=== PATIENT | female | born 1945 | race Caucasian/White ===

== ENCOUNTER 2016-08-03 19:11 | Inpatient (IN) | payer MEDICARE ==
[~2016-08-03] VITALS: Ht 160 cm; Wt 40.6 kg
[~2016-08-03 19:11] MED LIST: ALBU8I INH; AMLO5TAB22 PO; LEVO.125 PO; SUCR1 PO; TEMA15 PO
[2016-08-03 19:22] VITALS: BP 123/71; PULSE 120; RESP 18; TEMP 98.9; O2SAT 90
[2016-08-03 20:26] VITALS: RESP 20; O2SAT 94
[2016-08-03] MEDS ORDERED: SODIUM CHLORIDE 0.9% FLUSH 10 ML FLUSH IVF PRN (20:30)
[2016-08-03] MEDS ORDERED: RESP: ALBUTEROL 2.5 MG/IPRATROPIUM 0.5 MG NEB (SCH) INH ONE (20:30)
[2016-08-03 20:47] VITALS: O2SAT 93
[2016-08-03 21:02] LABS: BASOPHIL % 0.3 % (0.0-2.0); BLOOD, URINE NEG (NEG); GLUCOSE,URINE NEG (NEG); KETONE, URINE 15 mg/dL (NEG); LYMPH % 4.4 % (9.0-44.0); LYMPHOCYTE # 0.4 TH/MM3 (1.0-4.8); MEAN CELL VOLUME 94.6 FL (80.0-100.0); MEAN CORPUSCULAR HEMOGLOBIN 31.8 PG (27.0-34.0); MEAN CORPUSCULAR HGB CONC 33.5 % (32.0-36.0); MONO % 8.9 % (0.0-8.0); NEUT % 86.4 % (16.0-70.0); NITRITE,URINE NEG (NEG); PLATELET COUNT 138 TH/MM3 (150-450); RED BLOOD COUNT 4.76 MIL/MM3 (4.00-5.30); RED CELL DISTRIBUTION WIDTH 11.2 % (11.6-17.2); WHITE BLOOD COUNT 8.1 TH/MM3 (4.0-11.0)
--- NOTE | 2016-08-03 21:02 | RADHPO ---
EXAM DATE/TIME: 08/03/2016 20:32 [facility] COMPARISON: CHEST PA & LAT, March 08, 2013, 18:39. INDICATIONS : Cough, congestion, pain on left side for 24 hours MEDICAL HISTORY : Chronic obstructive pulmonary disease. SURGICAL HISTORY : None. ENCOUNTER: Initial ACUITY: 1 day PAIN SCORE: 5/10 LOCATION: Left chest FINDINGS: There is hyperinflation of both lungs consistent with the history of COPD. The heart size is normal. Osseous structures are intact. EKG leads are identified. Overlying the right sixth posterior rib is a vague 2.7 cm nodular opacity. A right lung mass is difficult to exclude. CT chest recommended for fu rther evaluation. CONCLUSION: COPD. Right lung mass should be excluded and CT chest. Solis Dunaway MD on August 03, 2016 at 20:59 Board Certified Radiologist. This report was verified electronically.
[2016-08-03 21:07] LABS: HEMO FLAGS DIFF FINAL
[2016-08-03 21:09] LABS: COMMENT (UR) CULT NOT INDICATED; CULTURE IF INDICATED CULT NOT INDICATED; RBC, URINE 0-2 /hpf (0-3); SQUAMOUS EPITHELIAL CELL URINE 0-5 /hpf (0-5); URINE COLOR YELLOW (YELLW/STRAW); WBC, URINE 0-2 /hpf (0-5)
[2016-08-03 21:11] LABS: CHLORIDE 104 MEQ/L (98-107); SODIUM (NA) 140 MEQ/L (136-145)
[2016-08-03 21:12] VITALS: BP 135/68; PULSE 85; RESP 18; O2SAT 93
[2016-08-03 21:15] LABS: ANION GAP 11 MEQ/L (5-15); BICARBONATE 24.8 MEQ/L (21.0-32.0); BLOOD UREA NITROGEN 11 MG/DL (7-18)
[2016-08-03 21:18] LABS: ALT (GPT) 15 U/L (10-53); AST (GOT) 17 U/L (15-37); GLOMERULAR FILTRATION RATE 67 ML/MIN (>89)
[2016-08-03 21:19] LABS: TOTAL BILIRUBIN ADULT 0.6 MG/DL (0.2-1.0)
[2016-08-03 21:21] LABS: ALKALINE PHOSPHATASE 99 U/L (45-117)
[2016-08-03 21:30] LABS: APTT (PATIENT) 34.1 SEC (24.3-30.1); PROTHROMBIN TIME - PATIENT 10.5 SEC (9.8-11.6)
[2016-08-03] MEDS ORDERED: POTASSIUM CHLORIDE 10 MEQ CONTROLLED RELEASE TAB PO ONE (21:30)
--- NOTE | 2016-08-03 21:36 | RADHPO ---
EXAM DATE/TIME: 08/03/2016 21:10 [facility] COMPARISON: CHEST PA & LAT, August 03, 2016, 20:32. INDICATIONS : Cough, abnormal chest radiograph. RADIATION DOSE: 6.20 CTDIvol (mGy) MEDICAL HISTORY : Chronic obstructive pulmonary disease. Hypertension. SURGICAL HISTORY : None. ENCOUNTER: Initial ACUITY: 1 day PAIN SCALE: 0/10 LOCATION: chest TECHNIQUE: Volumetric scanning of the chest was performed. Using automated exposure control and adjustment of t he mA and/or kV according to patient size, radiation dose was kept as low as reasonably achievable to obtain optimal diagnostic quality images. FINDINGS: Right upper lobe a focal slight is seen with a focal area of soft tissue along ial aspect seen best o n coronal image 41 measuring 1.9 cm in transverse dimension by 17 cm in AP dimension. There is patchy reticular nodular and confluent infiltrate distal to this point in the right upper lobe and this acc ounts for the nodular opacity on the x-ray. There are a few cystic air spaces seen in the right upper lobe including a thin-walled focus measuring 1.1 x 1.1 cm on image 19. Scattered nodular infiltrates are also seen in the right lower lobe with a more confluent nodular focus measuring 1.3 x 0.9 cm on image history posteriorly. There is a pleural-based triangle or focus of soft tissue in the left lowe r lobe measure 1.5 x 1 cm in AP and transverse dimension. Patchy nodular foci are seen also in the le ft lower lobe. Paraseptal emphysematous changes are noted. Atherosclerotic calcifications of the aort a are noted. No definite adenopathy. Osseous structures are intact. CONCLUSION: 1. Emphysema. 2. Scattered nodular infiltrates bilaterally most likely infectious in nature. Exclude atypical infec tious processes such as fungal or tuberculosis. 3. Neoplasm is not entirely excluded though felt less likely. Followup is recommended after appropria te medical therapy. Solis Dunaway MD on August 03, 2016 at 21:30 Board Certified Radiologist. This report was verified electronically.
[2016-08-03] MEDS ORDERED: AZITHROMYCIN INJ 500 MG in SODIUM CHLOR 0.9% 250 ML INJ 250 ML IV ONE (21:45)
[2016-08-03] MEDS ORDERED: cefTRIAXone INJ 1,000 MG in SODIUM CHLORIDE 0.9% INJ 100 ML IV ONE (21:45)
--- NOTE | 2016-08-03 21:49 | PD ---
HPI Chief Complaint: Cold / Flu Symptoms Time Seen by Provider: 20:10 Travel History International Travel<30 days: No Contact w/Intl Traveler<30days: No Traveled to known affect area: No History of Present Illness HPI Patient is a 71-year-old female who comes in complaining of chills, coughing, flulike symptoms. She says Monday night she started to have chills and she had some pain on her left side under her breast. She says she then started coughing yesterday and decided she should come in. In triage she was saturating 90% on room air and tachycardic. She says she does not feel short of breath. She has not taken her temperature at home, so does not know if she had a fever. She did take some Tylenol this afternoon, about 3 hours prior to arrival. She denies any recent travel. She denies any sick contacts. She says she felt this way in the past when she had pneumonia. PFSH Past Medical History Arthritis: Yes Asthma: No Autoimmune Disease: No Anxiety: No Depression: No Heart Rhythm Problems: No Cancer: No Cardiovascular Problems: Yes Cerebral Palsy: No High Cholesterol: No Chest Pain: No Congestive Heart Failure: No COPD: Yes Cerebrovascular Accident: No Diabetes: No Diminished Hearing: No Endocrine: Yes Gastrointestinal Disorders: Yes GERD: Yes Genitourinary: Yes (URGENCY/BLADDER SLING) Headaches: Yes Hiatal Hernia: No Hypertension: Yes Immune Disorder: No Implanted Vascular Access Dvce: Yes Kidney Stones: No Musculoskeletal: Yes Neurologic: No Psychiatric: No Reproductive: No Respiratory: Yes (COPD) Immunizations Current: Yes Migraines: No Renal Failure: No Seizures: No Sleep Apnea: No Thyroid Disease: Yes (HYPO) Ulcer: No Tetanus Vaccination: Unknown Influenza Vaccination: Yes ?: Not Menopausal: Yes Past Surgical History Abdominal Surgery: Yes (APPENDECTOMY - INCIDENTAL WITH CS, HERNIA REPAIR) AICD: No Appendectomy: Yes Arteriovenous Shunt: No Cardiac Surgery: No Section: Yes (X3) Endocrine Surgery: No Eye Surgery: No Genitourinary Surgery: No Gynecologic Surgery: Yes (CESEREAN SECTION X 3) Insulin Pump: No Joint Replacement: Yes (LEFT KNEE, RIGHT HIP) Neurologic Surgery: No Oral Surgery: Yes (TONSILLECTOMY) Pacemaker: No Thoracic Surgery: No Tonsillectomy: Yes Other Surgery: Yes (CARPEL TUNNEL SURG. TO RIGHT HAND., endoscopy x 2 with vessel cautery) Social History Alcohol Use: Yes (RARE) Tobacco Use: Yes (1/2 ppd) Substance Use: No Allergies-Medications (Allergen,Severity, Reaction): Coded Allergies: Sulfa (Verified Allergy, Severe, RASH, 08/03/16) Neosporin (Verified Allergy, Mild, Rash, 08/03/16) Uncoded Allergies: PLASTIC (Allergy, Mild, 12/04/15) Reported Meds & Prescriptions Reported Meds & Active Scripts Active Review of Systems Except as stated in HPI: all other systems reviewed are Neg General / Constitutional: Positive: Chills, No: Fever HENT: No: Headaches, Lightheadedness Cardiovascular: No: Chest Pain or Discomfort Respiratory: Positive: Cough Gastrointestinal: No: Nausea, Vomiting Genitourinary: No: Dysuria Musculoskeletal: No: Myalgias, Arthralgias Skin: No Rash, No Itching Neurologic: No: Weakness, Dizziness Physical Exam Narrative GENERAL: Awake and alert, in no acute distress. SKIN: Focused skin assessment warm/dry. HEAD: Atraumatic. Normocephalic. EYES: Pupils equal and round. No scleral icterus. ENT: Mucous membranes pink and moist. NECK: Trachea midline. No JVD. CARDIOVASCULAR: Regular rate and rhythm. No murmur appreciated. RESPIRATORY: No accessory muscle use. Left-sided basilar crackles. Breath sounds equal bilaterally. GASTROINTESTINAL: Abdomen soft, non-tender, nondistended. MUSCULOSKELETAL: No obvious deformities. No clubbing. No cyanosis. No edema. NEUROLOGICAL: Awake and alert. No obvious cranial nerve deficits. Motor grossly within normal limits. Normal speech. PSYCHIATRIC: Appropriate mood and affect; insight and judgment normal. Data Data Last Documented VS Vital Signs Date Time Temp Pulse Resp B/P Pulse Ox O2 Delivery O2 Flow Rate FiO2 08/03/16 21:12 85 18 135/68 93 Nasal Cannula 2 08/03/16 19:22 98.9 Orders Complete Blood Count With Diff (08/03/16 20:18) Comprehensive Metabolic Panel (08/03/16 20:18) Act Partial Throm Time (Ptt) (08/03/16 20:18) Prothrombin Time / Inr (Pt) (08/03/16 20:18) Troponin I (08/03/16 20:18) Urinalysis - C+S If Indicated (08/03/16 20:18) Ua Includes Microscopic (08/03/16 20:18) Iv Access Insert/Monitor (08/03/16 20:18) Electrocardiogram (08/03/16 20:18) Ecg Monitoring (08/03/16 20:18) Oximetry (08/03/16 20:18) Oxygen Administration (08/03/16 20:18) Chest, Pa & Lat (08/03/16 20:18) Sodium Chloride 0.9% Flush (Ns Flush) (08/03/16 20:30) Albuterol-Ipratropium Neb (Duoneb Neb) (08/03/16 20:30) Lactic Acid (08/03/16 20:18) Ct Thorax/ Chest Wo Iv Contras (08/03/16 ) Potassium Chloride (Kcl) (08/03/16 21:30) Ceftriaxone Inj (Rocephin Inj) (08/03/16 21:45) Azithromycin Inj (Zithromax Inj) (08/03/16 21:45) Isolation 08,20 (08/03/16 21:42) [employer] Culture And Stain (08/03/16 21:42) Blood Culture (08/03/16 21:42) Labs Laboratory Tests Test 08/03/16 20:55 White Blood Count 8.1 TH/MM3 Red Blood Count 4.76 MIL/MM3 Hemoglobin 15.1 GM/DL Hematocrit 45.0 % Mean Corpuscular Volume 94.6 FL Mean Corpuscular Hemoglobin 31.8 PG Mean Corpuscular Hemoglobin 33.5 % Concent Red Cell Distribution Width 11.2 % Platelet Count 138 TH/MM3 Mean Platelet Volume 8.2 FL Neutrophils (%) (Auto) 86.4 % Lymphocytes (%) (Auto) 4.4 % Monocytes (%) (Auto) 8.9 % Eosinophils (%) (Auto) 0.0 % Basophils (%) (Auto) 0.3 % Neutrophils # (Auto) 7.0 TH/MM3 Lymphocytes # (Auto) 0.4 TH/MM3 Monocytes # (Auto) 0.7 TH/MM3 Eosinophils # (Auto) 0.0 TH/MM3 Basophils # (Auto) 0.0 TH/MM3 CBC Comment DIFF FINAL Differential Comment Prothrombin Time 10.5 SEC Prothromb Time International 1.0 RATIO Ratio Activated Partial 34.1 SEC Thromboplast Time Urine Color YELLOW Urine Turbidity CLEAR Urine pH 6.0 Urine Specific [place] 1.016 Urine Protein 30 mg/dL Urine Glucose (UA) NEG mg/dL Urine Ketones 15 mg/dL Urine Occult Blood NEG Urine Nitrite NEG Urine Bilirubin NEG Urine Leukocyte Esterase NEG Urine RBC 0-2 /hpf Urine WBC 0-2 /hpf Urine Squamous Epithelial 0-5 /hpf Cells Urine Bacteria NONE /hpf Microscopic Urinalysis Comment CULT NOT INDICATED Sodium Level 140 MEQ/L Potassium Level 3.0 MEQ/L Chloride Level 104 MEQ/L Carbon Dioxide Level 24.8 MEQ/L Anion Gap 11 MEQ/L Blood Urea Nitrogen 11 MG/DL Creatinine 0.84 MG/DL Estimat Glomerular Filtration 67 ML/MIN Rate Random Glucose 117 MG/DL Lactic Acid Level 2.0 mmol/L Calcium Level 9.6 MG/DL Total Bilirubin 0.6 MG/DL Aspartate Amino Transf 17 U/L (AST/SGOT) Alanine Aminotransferase 15 U/L (ALT/SGPT) Alkaline Phosphatase 99 U/L Troponin I LESS THAN 0.02 NG/ML Total Protein 7.5 GM/DL Albumin 3.8 GM/DL [facility] Medical Decision Making Medical Screen Exam Complete: Yes Emergency Medical Condition: Yes Medical Record Reviewed: Yes Interpretation(s) ECG shows normal sinus rhythm at 87, left anterior fascicular block. Differential Diagnosis Pneumonia versus COPD exacerbation versus ACS Narrative Course Patient is a 71-year-old female who comes in complaining of cough and chills. Patient found to be hypoxic in triage at 90% and tachycardic to 120. Oxygen saturation improved on 2 L nasal cannula and her pulse came down to 93. IV established, labs sent, patient connected to the civil defense director. Patient given DuoNeb. Chest x-ray was concerning for a mass. CT of the chest was performed and showed multiple areas of infiltrates. Patient treated for pneumonia with Rocephin and azithromycin. Will require TB rule out while here, though she does not have any risk factors that she can think of. Labs are unremarkable other than a potassium of 3.0, this was replaced orally. Patient will be admitted for further management. Diagnosis Primary Impression: Pneumonia Qualified Code: J18.9 - Pneumonia of both lungs due to infectious organism, unspecified part of lung Additional Impression: COPD (chronic obstructive pulmonary disease) Qualified Code: J44.1 - Chronic obstructive pulmonary disease with acute exacerbation Admitting Information Admitting Physician Requests: Admit Condition: Stable Jagruti Del Toro MD August 03, 2016 21:49
[2016-08-03] MEDS ORDERED: LEVO100T5 PO (22:26)
[2016-08-03] MEDS ORDERED: VENTAER INH (22:26)
[2016-08-03] MEDS ORDERED: REST15CA PO (22:26)
[2016-08-03] MEDS ORDERED: AMLO5TAB2 PO (22:26)
[2016-08-03] MEDS ORDERED: CETI10 PO (22:26)
[2016-08-03] MEDS ORDERED: NALOXONE HCL 0.4 MG/ML AMP IV PRN (22:30)
[2016-08-03] MEDS ORDERED: RESP: ALBUTEROL 2.5 MG/IPRATROPIUM 0.5 MG NEB (PRN) INH (22:30)
[2016-08-03] MEDS ORDERED: ONDANSETRON HCL 4 MG/2 ML VIAL IVP PRN (22:30)
[2016-08-03] MEDS ORDERED: guaiFENesin/DEXTROMETHORPHAN 200 MG/20 MG/10 ML CUP PO PRN (22:30)
[2016-08-03] MEDS ORDERED: SODIUM CHLORIDE 0.9% FLUSH 10 ML FLUSH IV FLUSH PRN (22:30)
[2016-08-03] MEDS ORDERED: SENNOSIDES 8.6 MG TAB PO PRN (22:30)
[2016-08-03 22:33] VITALS: BP 135/65; PULSE 86; RESP 18; O2SAT 96
[2016-08-03] MEDS: ENOXAPARIN SODIUM 40 MG/0.4 ML SYRINGE SQ SCH (23:05)
[2016-08-04] VITALS (9 sets, daily range): BP systolic 115–142; BP diastolic 64–84; PULSE 79–109; RESP 14–24; TEMP 99.7–100.3; O2SAT 91–98
[2016-08-04] MEDS: RESP: ALBUTEROL 2.5 MG/IPRATROPIUM 0.5 MG NEB (SCH) INH ×3 (03:32→15:10)
[2016-08-04 06:37] LABS: POTASSIUM 3.2 MEQ/L (3.5-5.1)
[2016-08-04 06:44] LABS: BICARBONATE 24.3 MEQ/L (21.0-32.0)
[2016-08-04] MEDS ORDERED: ALBUTEROL SULFATE 90 MCG/ACT HFA 8 GM INHALER INH PRN (09:15)
[2016-08-04] MEDS ORDERED: POTASSIUM CHLORIDE 10 MEQ CONTROLLED RELEASE TAB PO ONE (09:30)
--- NOTE | 2016-08-04 10:09 | MH ---
cc: RASTA KOROMA MD DATE OF ADMISSION 08/03/2016 CHIEF COMPLAINT Shortness of breath, cough, flu-like symptom. HISTORY OF PRESENT ILLNESS This is a 71-year-old female with past medical-surgical history significant for asthma, history of COPD, gastroesophageal reflux disease, bladder sling surgery, history of headaches, history of hypothyroidism, history of appendectomy, hernia repair, x3, left knee surgery, right hip surgery, tonsillectomy, carpal tunnel surgery, right hand surgery, endoscopy x2 with vessel cauterization. Smoker of a half pack a day for more than 50 years came to the ER at [facility] complaining of cough, congestion, shortness of breath, flu-like symptoms. She said Monday night she started to have a chills and had some pain in the left side under her breasts. She said then she started coughing yesterday and decided to come to [facility] in [place]. She was saturating 90% at triage and also tachycardic. She says she does not feel short of breath. She does not have any temperature at home. She does not know if she has a fever. She did take some Tylenol yesterday at about three hours prior to arrival. She denies any recent travel. She denies any sick contacts. She says she felt this way in the past when she had pneumonia. When I examined the patient, the patient felt better after the treatment. Other than that, denies any chest pain. Denies any shortness of breath. Denies any nausea, vomiting, diarrhea, or constipation. Denies any fever or chills. Denies any black stool or blood in the stool. Denies any urinary tract infection symptoms. Denies any neurological symptoms. Other than that, nothing significant. PAST MEDICAL AND SURGICAL HISTORY As dictated above, as well as hypertension. SOCIAL HISTORY She is a smoker, smokes a half-pack a day for more than 50 years. She rarely drinks alcohol. Denies any drug abuse. She lives at home alone. 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 ALLERGIES SULFA AND NEOSPORIN. ALLERGIC TO PLASTIC. MEDICATIONS Include: 1. Temazepam 50 mg p.o. daily 2. Albuterol two puffs inhalation q. 4-hour 3. Amlodipine 5 mg p.o. 4. Cetirizine 10 mg daily 5. Levothyroxine 100 mcg p.o. daily REVIEW OF SYSTEMS Positive for cough, congestion, feeling weak and tired. All other review of systems are negative. PHYSICAL EXAMINATION This is a 71-year-old female sitting on the bed not any acute distress. VITAL SIGNS: Temperature 99.7, heart rate 90, respirations 16, blood pressure 142/84, O2 saturation 94% on two liters nasal cannula. HEENT: Normocephalic, atraumatic. PERRL. Oral mucosa moist. NECK: Supple. No visible thyromegaly or neck mass. Trachea is central. CARDIOVASCULAR: Regular rate and rhythm. RESPIRATORY: Respirations are clear. Bilateral crackles and bilateral wheezing mild. Decreased air entry bilaterally. ABDOMEN: Soft and nontender. Bowel sounds audible. EXTREMITIES: No cyanosis or clubbing. Full range of motion of all extremities. NEUROLOGIC: Awake, alert, and oriented x4. No focal deficits. SKIN: Warm and dry. PSYCH: The patient is cooperative, mood and affect are normal. LABORATORY DATA Include CBC totally unremarkable except for a platelet count 138 low, RDW 11.2 high, neutrophil percentage is high 86.4, lymphs percentage low 4.4%, mon percentage is high 8.9. BMP totally unremarkable except for potassium 3.2 low, chloride 108 high, lactic acid level 2.0. LFTs are normal. Troponin I less than 0.02. Total protein 7.5 normal, albumin 3.8 normal. PT 10.5, INR 0.0, APTT 34.1. Urine examination shows protein high at 30, ketones high 15, culture not indicated. CT chest was done shows emphysematous scattered nodular infiltrates bilaterally most likely infectious in nature, exclude a typical infectious process such as fungal or tuberculosis. Neoplasm is not entirely excluded although less likely. Follow up is recommended after appropriate medical therapy. Chest x-ray was done and shows a right lung mass, should be excluded by CT chest. Blood cultures x2 done negative so far. ASSESSMENT/PLAN 1. This is a 71-year female who came to the ER diagnosed with shortness of breath, cough and wheezing most likely secondary to pneumonia, COPD exacerbation. She was placed on Zithromax 500 mg IV daily and Rocephin 1 gram IV daily. The patient also on DuoNeb nebulization q6h. Further recommendations per patient progress. 2. History of hypertension. Continue home medications. 3. History of hypothyroidism. Continue with levothyroxine 100 mcg p.o. daily. 4. History of insomnia. Continue Zestril 15 mg p.o. daily. 5. DVT prophylaxis, Lovenox 40 mg subcutaneous daily. 6. GI prophylaxis Protonix 40 mg p.o. daily. 7. Low platelet count. We will monitor. 8. Hypokalemia. Replace potassium and then check magnesium level. 9. Check CBC and CMP in the morning. 10. We are going to manage the patient on a daily basis and make recommendations on a daily basis. Rasta Koroma MD EA/BHARATH /9:09 AM /9:42 AM
[2016-08-04] MEDS: amLODIPine BESYLATE 5 MG TAB PO SCH (10:19)
[2016-08-04] MEDS: CETIRIZINE HCL 10 MG TAB PO SCH (10:19)
[2016-08-04] MEDS: LEVOTHYROXINE SODIUM 100 MCG TAB PO SCH (10:20)
[2016-08-04] MEDS: SODIUM CHLORIDE 0.9% FLUSH 10 ML FLUSH IV FLUSH SCH ×2 (10:20→21:04)
[2016-08-04] MEDS: PANTOPRAZOLE SOD 40 MG DELAYED RELEASE TAB PO SCH (10:20)
--- NOTE | 2016-08-04 17:19 | EKG ---
Date Performed: 08/03/2016 Time Performed: 20:21:24 PTAGE: 71 years EKG: Sinus rhythm Left anterior fascicular block Lateral ST-T changes are nonspecific Borderline ECG PREVIOUS TRACING : 12/05/2015 05.51 Compared to the previous tracing, ST/T wave changes are les s prominent DOCTOR: Ez Vargas Interpretating Date/Time 08/04/2016 17:17:20
--- NOTE | 2016-08-04 18:35 | MB ---
cc: DEMI MURCIA DATE OF CONSULTATION 08/04/[address] Rasta Tinsley REASON FOR CONSULTATION Evaluate for lung infiltrate and COPD. HISTORY OF PRESENT ILLNESS Ms. Lanier is a 71-year-old female with history of gastroesophageal reflux disease, COPD. She came to the hospital with 4-5 day history of cough with greenish sputum production and she had one day history of pain under her left breast. She did not have fever or chills. No night sweats but she admits that she has lost about 30 pounds of weight over the last 6-8 months. Does not have any hemoptysis. No nausea or vomiting. No other significant problems. No difficulty swallowing to explain her weight loss. With these symptoms, she came to the hospital. She had a workup done. She had a CT scan of the chest done which shows that she has emphysema and has scattered nodular infiltrate bilaterally, most likely infectious in nature. Her CBC showed WBC count 8.1, hemoglobin 15.9, hematocrit 45.0 MCV 94, platelet count 138. Her sodium 143, potassium 3.2, chloride 108, CO2 24, BUN 10, creatinine 0.49, INR is 1.0. PAST MEDICAL HISTORY 1. History of hypertension 2. three times 3. History of knee surgery 22 years ago and at that time she developed a blood clot 4. History of endoscopy 5. History of carpal tunnel surgery. MEDICATIONS Currently taking 1. Zithromax 0.5 mg. 2. Rocephin 1 gram a day. 3. Albuterol nebulizer treatment. 4. Amlodipine 5 mg daily 5. Zyrtec 10 mg a day, 6. Levothyroxine 100 mcg a day 7. Temazepam 15 mg at nighttime. 8. Protonix 40 mg a day. 9. Lovenox 40 mg a day. ALLERGIES NEOSPORIN SULFA PLASTIC SOCIAL HISTORY She is and has history of smoking in the past. No alcohol abuse. 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 FAMILY HISTORY She has three children. REVIEW OF SYSTEMS She has lost weight. Normally she is up around and active. No history of malignancy. No seizure, stroke or epilepsy. PHYSICAL EXAMINATION General: Thin-built elderly female not in acute distress. VITAL SIGNS: Blood pressure 115/68, heart rate 90, respirations 24, temperature 100.3 HEENT: Pupils are equal and reactive to light. Oral mucosa, nasal mucosa normal. JVP not raised. CHEST: Equal air entry bilaterally. He has few scattered rales. CHEST: S1, S2 normal. ABDOMEN: Benign. EXTREMITIES: No edema. IMPRESSION 1. Scattered bilateral infiltrate possible atypical mycobacterial infection. However, fungal infection, bacterial infection is not ruled out, malignancy less likely. 2. Weight loss. 3. Chronic obstructive pulmonary disease 4. Anxiety disorder. PLAN I discussed with the patient we will check her sputum culture. Continue the antibiotic, aerosol treatments, supplement her oxygen. We will consider bronchoscopy to make a more definite diagnosis about the infection. Further treatment will depend on the course in the hospital. Thank you, Dr. Rasta Tinsley. MD KANU Celis/ /5:10 PM /6:18 PM
[2016-08-04] MEDS: cefTRIAXone INJ 1,000 MG in SODIUM CHLORIDE 0.9% INJ 100 ML IV SCH (21:04)
[2016-08-04] MEDS ORDERED: AZITHROMYCIN INJ 500 MG in SODIUM CHLOR 0.9% 250 ML INJ 250 ML IV SCH (22:00)
[2016-08-04] MEDS: ENOXAPARIN SODIUM 40 MG/0.4 ML SYRINGE SQ SCH (22:00)
[2016-08-04] MEDS: TEMAZEPAM 15 MG CAP PO PRN (22:00)
[2016-08-05] MEDS: RESP: ALBUTEROL 2.5 MG/IPRATROPIUM 0.5 MG NEB (SCH) INH ×5 (04:03→20:34)
[2016-08-05] MEDS: LEVOTHYROXINE SODIUM 100 MCG TAB PO SCH (06:38)
[2016-08-05 06:50] LABS: AUTOMATED NEUTROPHIL # 7.7 TH/MM3 (1.8-7.7); BASOPHIL % 0.2 % (0.0-2.0); CHLORIDE 110 MEQ/L (98-107); EOSINOPHIL # 0.1 TH/MM3 (0-0.4); EOSINOPHIL % 1.2 % (0.0-4.0); HEMATOCRIT 36.4 % (35.0-46.0); LYMPH % 6.5 % (9.0-44.0); LYMPHOCYTE # 0.6 TH/MM3 (1.0-4.8); MEAN CELL VOLUME 95.3 FL (80.0-100.0); MEAN CORPUSCULAR HEMOGLOBIN 32.2 PG (27.0-34.0); MEAN CORPUSCULAR HGB CONC 33.8 % (32.0-36.0); MONO % 9.8 % (0.0-8.0); NEUT % 82.3 % (16.0-70.0); PLATELET COUNT 147 TH/MM3 (150-450); POTASSIUM 3.7 MEQ/L (3.5-5.1); RED BLOOD COUNT 3.82 MIL/MM3 (4.00-5.30); RED CELL DISTRIBUTION WIDTH 11.8 % (11.6-17.2); SODIUM (NA) 143 MEQ/L (136-145); WHITE BLOOD COUNT 9.3 TH/MM3 (4.0-11.0)
[2016-08-05 06:52] LABS: HEMO FLAGS AUTO DIFF
[2016-08-05 07:04] LABS: ALKALINE PHOSPHATASE 88 U/L (45-117); ALT (GPT) 10 U/L (10-53); ANION GAP 9 MEQ/L (5-15); AST (GOT) 9 U/L (15-37); BICARBONATE 24.4 MEQ/L (21.0-32.0); BLOOD UREA NITROGEN 7 MG/DL (7-18); GLOMERULAR FILTRATION RATE 142 ML/MIN (>89); TOTAL BILIRUBIN ADULT 0.4 MG/DL (0.2-1.0)
[2016-08-05 07:16] LABS: SCAN/DIFF AUTO DIFF CONFIRMED
[2016-08-05 08:00] VITALS: BP 121/66; PULSE 79; RESP 24; TEMP 100.1; O2SAT 92
--- NOTE | 2016-08-05 08:22 | HHI.PR ---
Subjective History of Present Illness Patient feel shortness of breath no acute issue. Review of Systems Constitutional Constitutional: Fatigue, Weakness Pulmonary Respiratory: Coughing, Shortness of Breath, Wheezing Vitals/Results Intake & Output 08/04/16 08/04/16 08/05/16 14:59 22:59 06:59 Intake Total 660 ml 400 ml 500 ml Balance 660 ml 400 ml 500 ml Intake Oral 660 ml 300 ml 500 ml IV Total 100 ml # Voids 2 2 2 # Bowel Movements 1 Vital Signs Vital Signs Date Time Temp Pulse Resp B/P Pulse Ox O2 Delivery O2 Flow Rate FiO2 08/04/16 23:00 99.9 109 16 142/76 91 08/04/16 21:50 95 08/04/16 19:00 99.7 79 14 115/73 94 08/04/16 16:00 100.3 90 24 115/68 95 08/04/16 12:00 100.0 91 24 121/64 94 08/04/16 09:50 93 21 CBC/BMP: 08/05/16 0538 08/05/16 0538 Lab Results Laboratory Tests Test 08/05/16 05:38 White Blood Count 9.3 TH/MM3 Red Blood Count 3.82 MIL/MM3 Hemoglobin 12.3 GM/DL Hematocrit 36.4 % Mean Corpuscular Volume 95.3 FL Mean Corpuscular Hemoglobin 32.2 PG Mean Corpuscular Hemoglobin 33.8 % Concent Red Cell Distribution Width 11.8 % Platelet Count 147 TH/MM3 Mean Platelet Volume 8.4 FL Neutrophils (%) (Auto) 82.3 % Lymphocytes (%) (Auto) 6.5 % Monocytes (%) (Auto) 9.8 % Eosinophils (%) (Auto) 1.2 % Basophils (%) (Auto) 0.2 % Neutrophils # (Auto) 7.7 TH/MM3 Lymphocytes # (Auto) 0.6 TH/MM3 Monocytes # (Auto) 0.9 TH/MM3 Eosinophils # (Auto) 0.1 TH/MM3 Basophils # (Auto) 0.0 TH/MM3 CBC Comment AUTO DIFF Differential Comment AUTO DIFF CONFIRMED Sodium Level 143 MEQ/L Potassium Level 3.7 MEQ/L Chloride Level 110 MEQ/L Carbon Dioxide Level 24.4 MEQ/L Anion Gap 9 MEQ/L Blood Urea Nitrogen 7 MG/DL Creatinine 0.44 MG/DL Estimat Glomerular Filtration 142 ML/MIN Rate Random Glucose 94 MG/DL Calcium Level 9.0 MG/DL Total Bilirubin 0.4 MG/DL Aspartate Amino Transf 9 U/L (AST/SGOT) Alanine Aminotransferase 10 U/L (ALT/SGPT) Alkaline Phosphatase 88 U/L Total Protein 6.0 GM/DL Albumin 2.8 GM/DL Microbiology Microbiology 08/04/16 Acid Fast Stain, Received Pending 08/04/16 Mycobacterial Culture, Received Pending Physical Exam General General Appearance: No Acute Distress, Comfortable Eyes Eye Exam: Pupils Equal, Pupils Reactive, Sclera White, Extraocular Movement Intact Throat Throat Exam: Oral Mucosa [place] & Moist, Oral Pharynx Normal Pulmonary Resp Exam: Diminished Breath Sounds Resp Remarks Bilateral wheezing Cardiology CV Exam: Regular, Normal Sinus Rhythm Gastrointestinal/Abdomen GI Exam: Soft, Non-Tender, Bowel Sounds Present Musculoskeletal MS Exam: Normal Tone Integumentary Skin Exam: Clear, Warm, Dry, Intact Extremeties Extremities Exam: No Edema Neurologic Neuro Exam: Alert, Awake, Oriented, Speech Clear, Moving All Extremities, No Focal Deficits Psychiatric Psych Exam: Appropriate Responses VTE Prophylaxis VTE Prophylaxis Meds: Lovenox PUD Prophylasis PUD Prophylaxis: Protonix Assessment/Plan Assessment/Plan ASSESSMENT/PLAN 1. This is a 71-year female who came to the ER diagnosed with shortness of breath, cough and wheezing most likely secondary to pneumonia, COPD exacerbation. on Zithromax 500 mg IV daily and Rocephin 1 gram IV daily. The patient also on DuoNeb nebulization q6h. Further recommendations per patient progress. 2. History of hypertension. Continue home medications. 3. History of hypothyroidism. Continue with levothyroxine 100 mcg p.o. daily. 4. History of insomnia. Continue Zestril 15 mg p.o. daily. 5. DVT prophylaxis, Lovenox 40 mg subcutaneous daily. 6. GI prophylaxis Protonix 40 mg p.o. daily. 7. Low platelet count. We will monitor. 8. Hypokalemia. resolved. 9. Check CBC and CMP in the morning. 10. We are going to manage the patient on a daily basis and make recommendations on a daily basis. Discussed Condition with: Patient Rasta Tinsley MD August 05, 2016 08:22
[2016-08-05 08:40] VITALS: O2SAT 94
[2016-08-05] MEDS: SODIUM CHLORIDE 0.9% FLUSH 10 ML FLUSH IV FLUSH SCH ×2 (09:00→20:25)
[2016-08-05] MEDS: CETIRIZINE HCL 10 MG TAB PO SCH (09:03)
[2016-08-05] MEDS: ACETAMINOPHEN 325 MG TAB PO PRN (09:04)
[2016-08-05] MEDS: amLODIPine BESYLATE 5 MG TAB PO SCH (09:04)
[2016-08-05] MEDS: PANTOPRAZOLE SOD 40 MG DELAYED RELEASE TAB PO SCH (09:04)
[2016-08-05 11:53] VITALS: BP 101/60; PULSE 84; RESP 20; TEMP 98.9; O2SAT 95
[2016-08-05 16:00] VITALS: BP 115/75; PULSE 94; RESP 24; TEMP 98; O2SAT 100
--- NOTE | 2016-08-05 17:17 | HHI.PR ---
Subjective Remarks 71 YOWF with COPD,Weight loss, Cough, sp AFB neg X 1 Anxious to go home No fever No CP Objective Vital Signs Vital Signs Date Time Temp Pulse Resp B/P Pulse Ox O2 Delivery O2 Flow Rate FiO2 08/05/16 16:00 98.0 94 24 115/75 100 08/05/16 11:53 98.9 84 20 101/60 95 08/05/16 08:40 94 Nasal Cannula 2.00 08/05/16 08:00 100.1 79 24 121/66 92 08/04/16 23:00 99.9 109 16 142/76 91 08/04/16 21:50 95 08/04/16 19:00 99.7 79 14 115/73 94 I/O 08/04/16 08/04/16 08/04/16 08/05/16 08/05/16 08/05/16 07:00 15:00 23:00 07:00 15:00 23:00 Intake Total 480 ml 660 ml 400 ml 500 ml 420 ml Balance 480 ml 660 ml 400 ml 500 ml 420 ml Intake Oral 480 ml 660 ml 300 ml 500 ml 420 ml IV Total 100 ml # Voids 4 2 2 2 2 # Bowel Movements 1 1 Result Diagram: 08/05/1638 08/05/1638 Objective Remarks GENERAL: Thin built WF, NAD SKIN: Warm and dry. HEAD: Normocephalic. EYES: No scleral icterus. No injection or drainage. NECK: Supple, trachea midline. No JVD or lymphadenopathy. CARDIOVASCULAR: Regular rate and rhythm without murmurs, gallops, or rubs. RESPIRATORY: Breath sounds equal bilaterally. No accessory muscle use. GASTROINTESTINAL: Abdomen soft, non-tender, nondistended. MUSCULOSKELETAL: No cyanosis, or edema. BACK: Nontender without obvious deformity. No CVA tenderness. A/P Assessment and Plan Scattered Lung infilt, ? NTM COPD HTN Anxiety PLAN: DW Pt and Family Cont Aerosol nebs Abx Rocephin and Zithro SQ Lovenox DC Isolation if AFB Neg Lorne James MD August 05, 2016 17:17
[2016-08-05 20:00] VITALS: BP 124/74; PULSE 86; RESP 20; TEMP 98.8; O2SAT 94
[2016-08-05] MEDS: cefTRIAXone INJ 1,000 MG in SODIUM CHLORIDE 0.9% INJ 100 ML IV SCH (20:25)
[2016-08-05 20:34] VITALS: O2SAT 97
[2016-08-05] MEDS: ENOXAPARIN SODIUM 40 MG/0.4 ML SYRINGE SQ SCH (22:17)
[2016-08-05] MEDS: AZITHROMYCIN 250 MG TAB PO SCH (22:18)
[2016-08-05] MEDS: TEMAZEPAM 15 MG CAP PO PRN (22:22)
[2016-08-06] VITALS: BP 118/75; PULSE 75; RESP 16; TEMP 99; O2SAT 98
[2016-08-06] MEDS: RESP: ALBUTEROL 2.5 MG/IPRATROPIUM 0.5 MG NEB (SCH) INH ×4 (03:44→20:52)
[2016-08-06] MEDS: LEVOTHYROXINE SODIUM 100 MCG TAB PO SCH (07:17)
[2016-08-06 07:27] LABS: AUTOMATED NEUTROPHIL # 6.5 TH/MM3 (1.8-7.7); BASOPHIL % 0.4 % (0.0-2.0); EOSINOPHIL # 0.2 TH/MM3 (0-0.4); EOSINOPHIL % 2.2 % (0.0-4.0); HEMATOCRIT 35.3 % (35.0-46.0); HEMO FLAGS DIFF FINAL; LYMPH % 9.9 % (9.0-44.0); LYMPHOCYTE # 0.8 TH/MM3 (1.0-4.8); MEAN CELL VOLUME 96.4 FL (80.0-100.0); MEAN CORPUSCULAR HEMOGLOBIN 32.4 PG (27.0-34.0); MEAN CORPUSCULAR HGB CONC 33.6 % (32.0-36.0); MONO % 8.2 % (0.0-8.0); NEUT % 79.3 % (16.0-70.0); PLATELET COUNT 146 TH/MM3 (150-450); RED BLOOD COUNT 3.66 MIL/MM3 (4.00-5.30); RED CELL DISTRIBUTION WIDTH 11.4 % (11.6-17.2); WHITE BLOOD COUNT 8.2 TH/MM3 (4.0-11.0)
[2016-08-06 07:31] LABS: CHLORIDE 110 MEQ/L (98-107); POTASSIUM 3.1 MEQ/L (3.5-5.1); SODIUM (NA) 142 MEQ/L (136-145)
[2016-08-06 07:38] LABS: ANION GAP 7 MEQ/L (5-15); BICARBONATE 24.6 MEQ/L (21.0-32.0); BLOOD UREA NITROGEN 6 MG/DL (7-18)
[2016-08-06 07:41] LABS: AST (GOT) 12 U/L (15-37); GLOMERULAR FILTRATION RATE 128 ML/MIN (>89)
[2016-08-06 07:43] LABS: TOTAL BILIRUBIN ADULT 0.4 MG/DL (0.2-1.0)
[2016-08-06 07:44] LABS: ALKALINE PHOSPHATASE 92 U/L (45-117); ALT (GPT) 13 U/L (10-53)
[2016-08-06] MEDS: SODIUM CHLORIDE 0.9% FLUSH 10 ML FLUSH IV FLUSH SCH ×2 (09:00→20:37)
[2016-08-06] MEDS: CETIRIZINE HCL 10 MG TAB PO SCH (09:01)
[2016-08-06] MEDS: amLODIPine BESYLATE 5 MG TAB PO SCH (09:01)
[2016-08-06] MEDS: PANTOPRAZOLE SOD 40 MG DELAYED RELEASE TAB PO SCH (09:01)
[2016-08-06] MEDS: ACETAMINOPHEN 325 MG TAB PO PRN (09:02)
--- NOTE | 2016-08-06 09:26 | HHI.PR ---
Subjective History of Present Illness Patient feel shortness of breath Low potassium will replace and check magnesium level..no acute issue. Review of Systems Constitutional Constitutional: Fatigue, Weakness Pulmonary Respiratory: Coughing, Shortness of Breath, Wheezing Vitals/Results Intake & Output 08/05/16 08/05/16 08/06/16 15:00 23:00 07:00 Intake Total 420 ml 600 ml 300 ml Balance 420 ml 600 ml 300 ml Intake Oral 420 ml 500 ml 300 ml IV Total 100 ml # Voids 2 2 2 Vital Signs Vital Signs Date Time Temp Pulse Resp B/P Pulse Ox O2 Delivery O2 Flow Rate FiO2 08/06/16 00:00 99.0 75 16 118/75 98 08/05/16 20:34 97 Nasal Cannula 2.00 08/05/16 20:00 98.8 86 20 124/74 94 08/05/16 16:00 98.0 94 24 115/75 100 08/05/16 11:53 98.9 84 20 101/60 95 CBC/BMP: 08/06/16 0623 08/06/16 0623 Lab Results Laboratory Tests Test 08/06/16 06:23 White Blood Count 8.2 TH/MM3 Red Blood Count 3.66 MIL/MM3 Hemoglobin 11.9 GM/DL Hematocrit 35.3 % Mean Corpuscular Volume 96.4 FL Mean Corpuscular Hemoglobin 32.4 PG Mean Corpuscular Hemoglobin 33.6 % Concent Red Cell Distribution Width 11.4 % Platelet Count 146 TH/MM3 Mean Platelet Volume 8.1 FL Neutrophils (%) (Auto) 79.3 % Lymphocytes (%) (Auto) 9.9 % Monocytes (%) (Auto) 8.2 % Eosinophils (%) (Auto) 2.2 % Basophils (%) (Auto) 0.4 % Neutrophils # (Auto) 6.5 TH/MM3 Lymphocytes # (Auto) 0.8 TH/MM3 Monocytes # (Auto) 0.7 TH/MM3 Eosinophils # (Auto) 0.2 TH/MM3 Basophils # (Auto) 0.0 TH/MM3 CBC Comment DIFF FINAL Differential Comment Sodium Level 142 MEQ/L Potassium Level 3.1 MEQ/L Chloride Level 110 MEQ/L Carbon Dioxide Level 24.6 MEQ/L Anion Gap 7 MEQ/L Blood Urea Nitrogen 6 MG/DL Creatinine 0.48 MG/DL Estimat Glomerular Filtration 128 ML/MIN Rate Random Glucose 94 MG/DL Calcium Level 8.8 MG/DL Total Bilirubin 0.4 MG/DL Aspartate Amino Transf 12 U/L (AST/SGOT) Alanine Aminotransferase 13 U/L (ALT/SGPT) Alkaline Phosphatase 92 U/L Total Protein 5.9 GM/DL Albumin 2.7 GM/DL Physical Exam General General Appearance: No Acute Distress, Comfortable Eyes Eye Exam: Pupils Equal, Pupils Reactive, Sclera White, Extraocular Movement Intact Throat Throat Exam: Oral Mucosa [place] & Moist, Oral Pharynx Normal Pulmonary Resp Exam: Diminished Breath Sounds Resp Remarks Bilateral wheezing Cardiology CV Exam: Regular, Normal Sinus Rhythm Gastrointestinal/Abdomen GI Exam: Soft, Non-Tender, Bowel Sounds Present Musculoskeletal MS Exam: Normal Tone Integumentary Skin Exam: Clear, Warm, Dry, Intact Extremeties Extremities Exam: No Edema Neurologic Neuro Exam: Alert, Awake, Oriented, Speech Clear, Moving All Extremities, No Focal Deficits Psychiatric Psych Exam: Appropriate Responses VTE Prophylaxis VTE Prophylaxis Meds: Lovenox PUD Prophylasis PUD Prophylaxis: Protonix Assessment/Plan Assessment/Plan ASSESSMENT/PLAN 1. This is a 71-year female who came to the ER diagnosed with shortness of breath, cough and wheezing most likely secondary to pneumonia, COPD exacerbation. on Zithromax 500 mg IV daily and Rocephin 1 gram IV daily. The patient also on DuoNeb nebulization q6h. Further recommendations per patient progress. 2. History of hypertension. Continue home medications. 3. History of hypothyroidism. Continue with levothyroxine 100 mcg p.o. daily. 4. History of insomnia. Continue Zestril 15 mg p.o. daily. 5. DVT prophylaxis, Lovenox 40 mg subcutaneous daily. 6. GI prophylaxis Protonix 40 mg p.o. daily. 7. Low platelet count. We will monitor. 8. Hypokalemia. will replace and check magnesium level. 9. Check CBC and CMP in the morning. 10. We are going to manage the patient on a daily basis and make recommendations on a daily basis. Discussed Condition with: Patient Rasta Tinsley MD August 06, 2016 09:26
[2016-08-06 10:16] VITALS: O2SAT 97
[2016-08-06] MEDS ORDERED: POTASSIUM CHLORIDE 10 MEQ CONTROLLED RELEASE TAB PO ONE (12:15)
--- NOTE | 2016-08-06 15:32 | RADHPO ---
EXAM DATE/TIME: 08/06/2016 14:34 [place] COMPARISON: CHEST PA & LAT, August 03, 2016, 20:32. INDICATIONS : Cough MEDICAL HISTORY : Chronic obstructive pulmonary disease. SURGICAL HISTORY : None. ENCOUNTER: Subsequent ACUITY: 4 - 6 days PAIN SCORE: 0/10 LOCATION: Bilateral chest FINDINGS: The lungs are hyperinflated. There is minimal blunting of the left costphrenic sulcus when compared to the right. There is no alveolar consolidation, pleural effusion or pneumothorax. CONCLUSION: Marked hyperinflation without obvious inflammatory changes. Santiago Franco MD FACR on August 06, 2016 at 15:11 Board Certified Radiologist. This report was verified electronically.
[2016-08-06 16:00] VITALS: BP 125/65; PULSE 80; RESP 18; TEMP 98; O2SAT 95
--- NOTE | 2016-08-06 17:45 | HHI.PR ---
Subjective Remarks 71 YOWF with COPD,Weight loss, Cough, sp AFB neg X 1 Anxious to go home No fever No CP No new complaint Objective Vital Signs Vital Signs Date Time Temp Pulse Resp B/P Pulse Ox O2 Delivery O2 Flow Rate FiO2 08/06/16 16:00 98.0 80 18 125/65 95 08/06/16 10:16 97 Nasal Cannula 2.00 08/06/16 00:00 99.0 75 16 118/75 98 08/05/16 20:34 97 Nasal Cannula 2.00 08/05/16 20:00 98.8 86 20 124/74 94 I/O 08/05/16 08/05/16 08/05/16 08/06/16 08/06/16 08/06/16 07:00 15:00 23:00 07:00 15:00 23:00 Intake Total 500 ml 420 ml 600 ml 300 ml Balance 500 ml 420 ml 600 ml 300 ml Intake Oral 500 ml 420 ml 500 ml 300 ml IV Total 100 ml # Voids 2 2 2 2 # Bowel Movements 1 Result Diagram: 08/06/1662208/06/16 0623 Objective Remarks GENERAL: Thin built WF, NAD SKIN: Warm and dry. HEAD: Normocephalic. EYES: No scleral icterus. No injection or drainage. NECK: Supple, trachea midline. No JVD or lymphadenopathy. CARDIOVASCULAR: Regular rate and rhythm without murmurs, gallops, or rubs. RESPIRATORY: Breath sounds equal bilaterally. No accessory muscle use. GASTROINTESTINAL: Abdomen soft, non-tender, nondistended. MUSCULOSKELETAL: No cyanosis, or edema. BACK: Nontender without obvious deformity. No CVA tenderness. A/P Assessment and Plan Scattered Lung infilt, ? NTM COPD HTN Anxiety PLAN: DW Pt and Family Cont Aerosol nebs Abx Rocephin and Zithro SQ Lovenox Check rpt AFB Lorne James MD August 06, 2016 17:45
[2016-08-06 20:33] VITALS: BP 123/73; PULSE 80; RESP 20; TEMP 98.8; O2SAT 93
[2016-08-06] MEDS: cefTRIAXone INJ 1,000 MG in SODIUM CHLORIDE 0.9% INJ 100 ML IV SCH (20:37)
[2016-08-06 20:52] VITALS: O2SAT 97
[2016-08-06] MEDS: AZITHROMYCIN 250 MG TAB PO SCH (22:38)
[2016-08-06] MEDS: ENOXAPARIN SODIUM 40 MG/0.4 ML SYRINGE SQ SCH (22:38)
[2016-08-06] MEDS: TEMAZEPAM 15 MG CAP PO PRN (22:38)
[2016-08-07] MEDS: RESP: ALBUTEROL 2.5 MG/IPRATROPIUM 0.5 MG NEB (SCH) INH ×4 (03:56→21:01)
[2016-08-07] MEDS: LEVOTHYROXINE SODIUM 100 MCG TAB PO SCH (06:37)
[2016-08-07 07:34] LABS: AUTOMATED NEUTROPHIL # 4.2 TH/MM3 (1.8-7.7); BASOPHIL % 0.8 % (0.0-2.0); EOSINOPHIL # 0.1 TH/MM3 (0-0.4); EOSINOPHIL % 2.4 % (0.0-4.0); HEMATOCRIT 34.9 % (35.0-46.0); HEMO FLAGS DIFF FINAL; LYMPH % 16.9 % (9.0-44.0); MEAN CELL VOLUME 94.9 FL (80.0-100.0); MEAN CORPUSCULAR HEMOGLOBIN 31.8 PG (27.0-34.0); MEAN CORPUSCULAR HGB CONC 33.5 % (32.0-36.0); MONO % 10.9 % (0.0-8.0); PLATELET COUNT 182 TH/MM3 (150-450); RED BLOOD COUNT 3.68 MIL/MM3 (4.00-5.30); RED CELL DISTRIBUTION WIDTH 11.5 % (11.6-17.2); WHITE BLOOD COUNT 5.9 TH/MM3 (4.0-11.0)
[2016-08-07 07:40] LABS: CHLORIDE 113 MEQ/L (98-107); POTASSIUM 3.4 MEQ/L (3.5-5.1); SODIUM (NA) 145 MEQ/L (136-145)
[2016-08-07 07:53] LABS: ANION GAP 7 MEQ/L (5-15); BICARBONATE 24.9 MEQ/L (21.0-32.0); BLOOD UREA NITROGEN 7 MG/DL (7-18)
[2016-08-07 07:55] LABS: ALT (GPT) 19 U/L (10-53); AST (GOT) 18 U/L (15-37); GLOMERULAR FILTRATION RATE 154 ML/MIN (>89)
[2016-08-07 07:57] LABS: TOTAL BILIRUBIN ADULT 0.3 MG/DL (0.2-1.0)
[2016-08-07 07:58] LABS: ALKALINE PHOSPHATASE 94 U/L (45-117)
[2016-08-07 08:00] VITALS: BP 119/73; PULSE 70; RESP 18; TEMP 97.5; O2SAT 70
[2016-08-07] MEDS: CETIRIZINE HCL 10 MG TAB PO SCH (08:31)
[2016-08-07] MEDS: PANTOPRAZOLE SOD 40 MG DELAYED RELEASE TAB PO SCH (08:31)
[2016-08-07] MEDS: amLODIPine BESYLATE 5 MG TAB PO SCH (08:31)
[2016-08-07] MEDS: SODIUM CHLORIDE 0.9% FLUSH 10 ML FLUSH IV FLUSH SCH ×2 (08:33→21:43)
--- NOTE | 2016-08-07 10:40 | HHI.PR ---
Subjective History of Present Illness Patient shortness of breath much better Low potassium will replace and checked magnesium level..1.9 ..no acute issue.. d/w TUCKER Palacios.. Review of Systems Constitutional Constitutional: Fatigue, Weakness Pulmonary Respiratory: Coughing, Shortness of Breath, Wheezing Vitals/Results Vital Signs Vital Signs Date Time Temp Pulse Resp B/P Pulse Ox O2 Delivery O2 Flow Rate FiO2 08/06/16 20:52 97 Nasal Cannula 2.00 08/06/16 20:33 98.8 80 20 123/73 93 08/06/16 16:00 98.0 80 18 125/65 95 CBC/BMP: 08/07/16 0659 08/07/16 0659 Lab Results Laboratory Tests Test 08/07/16 06:59 White Blood Count 5.9 TH/MM3 Red Blood Count 3.68 MIL/MM3 Hemoglobin 11.7 GM/DL Hematocrit 34.9 % Mean Corpuscular Volume 94.9 FL Mean Corpuscular Hemoglobin 31.8 PG Mean Corpuscular Hemoglobin 33.5 % Concent Red Cell Distribution Width 11.5 % Platelet Count 182 TH/MM3 Mean Platelet Volume 7.7 FL Neutrophils (%) (Auto) 69.0 % Lymphocytes (%) (Auto) 16.9 % Monocytes (%) (Auto) 10.9 % Eosinophils (%) (Auto) 2.4 % Basophils (%) (Auto) 0.8 % Neutrophils # (Auto) 4.2 TH/MM3 Lymphocytes # (Auto) 1.0 TH/MM3 Monocytes # (Auto) 0.6 TH/MM3 Eosinophils # (Auto) 0.1 TH/MM3 Basophils # (Auto) 0.0 TH/MM3 CBC Comment DIFF FINAL Differential Comment Sodium Level 145 MEQ/L Potassium Level 3.4 MEQ/L Chloride Level 113 MEQ/L Carbon Dioxide Level 24.9 MEQ/L Anion Gap 7 MEQ/L Blood Urea Nitrogen 7 MG/DL Creatinine 0.41 MG/DL Estimat Glomerular Filtration 154 ML/MIN Rate Random Glucose 92 MG/DL Calcium Level 8.7 MG/DL Total Bilirubin 0.3 MG/DL Aspartate Amino Transf 18 U/L (AST/SGOT) Alanine Aminotransferase 19 U/L (ALT/SGPT) Alkaline Phosphatase 94 U/L Total Protein 5.8 GM/DL Albumin 2.6 GM/DL Physical Exam General General Appearance: No Acute Distress, Comfortable Eyes Eye Exam: Pupils Equal, Pupils Reactive, Sclera White, Extraocular Movement Intact Throat Throat Exam: Oral Mucosa [place] & Moist, Oral Pharynx Normal Pulmonary Resp Exam: Diminished Breath Sounds Resp Remarks Bilateral wheezing Cardiology CV Exam: Regular, Normal Sinus Rhythm Gastrointestinal/Abdomen GI Exam: Soft, Non-Tender, Bowel Sounds Present Musculoskeletal MS Exam: Normal Tone Integumentary Skin Exam: Clear, Warm, Dry, Intact Extremeties Extremities Exam: No Edema Neurologic Neuro Exam: Alert, Awake, Oriented, Speech Clear, Moving All Extremities, No Focal Deficits Psychiatric Psych Exam: Appropriate Responses VTE Prophylaxis VTE Prophylaxis Meds: Lovenox PUD Prophylasis PUD Prophylaxis: Protonix Assessment/Plan Assessment/Plan ASSESSMENT/PLAN 1. This is a 71-year female who came to the ER diagnosed with shortness of breath, cough and wheezing most likely secondary to pneumonia, COPD exacerbation. on Zithromax 500 mg IV daily and Rocephin 1 gram IV daily. The patient also on DuoNeb nebulization q6h. Further recommendations per patient progress. 2. History of hypertension. Continue home medications. 3. History of hypothyroidism. Continue with levothyroxine 100 mcg p.o. daily. 4. History of insomnia. Continue Zestril 15 mg p.o. daily. 5. DVT prophylaxis, Lovenox 40 mg subcutaneous daily. 6. GI prophylaxis Protonix 40 mg p.o. daily. 7. Low platelet count. We will monitor. 8. Hypokalemia. will replace and checked magnesium level...1.9 9. Check CBC and CMP in the morning. 10. We are going to manage the patient on a daily basis and make recommendations on a daily basis. Discussed Condition with: Patient Rasta Tinsley MD August 07, 2016 10:40
[2016-08-07 12:00] VITALS: BP 109/68; PULSE 90; RESP 18; TEMP 97.4; O2SAT 93
[2016-08-07 16:22] VITALS: O2SAT 91
--- NOTE | 2016-08-07 19:13 | HHI.PR ---
Subjective Remarks 71 YOWF with COPD,Weight loss, Cough, sp AFB neg X 1 Anxious to go home No fever No CP Objective Vital Signs Vital Signs Date Time Temp Pulse Resp B/P Pulse Ox O2 Delivery O2 Flow Rate FiO2 08/07/16 16:22 91 21 08/07/16 12:00 97.4 90 18 109/68 93 08/07/16 08:00 97.5 70 18 119/73 70 08/06/16 20:52 97 Nasal Cannula 2.00 08/06/16 20:33 98.8 80 20 123/73 93 I/O 08/06/16 08/06/16 08/06/16 08/07/16 08/07/16 08/07/16 07:00 15:00 23:00 07:00 15:00 23:00 Intake Total 300 ml Balance 300 ml Intake Oral 300 ml # Voids 2 Result Diagram: 08/07/16 0659 08/07/16 0659 Objective Remarks GENERAL: Thin built WF, NAD SKIN: Warm and dry. HEAD: Normocephalic. EYES: No scleral icterus. No injection or drainage. NECK: Supple, trachea midline. No JVD or lymphadenopathy. CARDIOVASCULAR: Regular rate and rhythm without murmurs, gallops, or rubs. RESPIRATORY: Breath sounds equal bilaterally. No accessory muscle use. GASTROINTESTINAL: Abdomen soft, non-tender, nondistended. MUSCULOSKELETAL: No cyanosis, or edema. BACK: Nontender without obvious deformity. No CVA tenderness. A/P Assessment and Plan Scattered Lung infilt, ? NTM COPD HTN Anxiety PLAN: Cont Aerosol nebs Abx Rocephin and Zithro SQ Lovenox Check rpt AFB Stable from pulm standpoint Lorne James MD August 07, 2016 19:13
[2016-08-07 20:00] VITALS: BP 116/71; PULSE 89; RESP 18; TEMP 99.2; O2SAT 94
[2016-08-07 21:03] VITALS: O2SAT 92
[2016-08-07] MEDS: AZITHROMYCIN 250 MG TAB PO SCH (21:43)
[2016-08-07] MEDS: cefTRIAXone INJ 1,000 MG in SODIUM CHLORIDE 0.9% INJ 100 ML IV SCH (21:43)
[2016-08-07] MEDS: ENOXAPARIN SODIUM 40 MG/0.4 ML SYRINGE SQ SCH (21:44)
[2016-08-07] MEDS: TEMAZEPAM 15 MG CAP PO PRN (22:26)
[2016-08-08] VITALS: BP 115/70; PULSE 80; RESP 18; TEMP 98.2; O2SAT 92
[2016-08-08] MEDS: LEVOTHYROXINE SODIUM 100 MCG TAB PO SCH (06:04)
[2016-08-08 08:00] VITALS: BP 119/71; PULSE 72; RESP 20; TEMP 97.6; O2SAT 91; O2SAT 96
[2016-08-08] MEDS: SODIUM CHLORIDE 0.9% FLUSH 10 ML FLUSH IV FLUSH SCH (09:00)
--- NOTE | 2016-08-08 09:02 | HHI.PR ---
Subjective History of Present Illness Patient shortness of breath much better Low potassium will replace ..no acute issue.. d/w RN Anne. ok to dc per pulmonary. Review of Systems Constitutional Constitutional: Fatigue, Weakness Pulmonary Respiratory: Coughing, Shortness of Breath, Wheezing Vitals/Results Intake & Output 08/07/16 08/07/16 08/08/16 15:00 23:00 07:00 Intake Total 110 ml Balance 110 ml IV Total 110 ml Vital Signs Vital Signs Date Time Temp Pulse Resp B/P Pulse Ox O2 Delivery O2 Flow Rate FiO2 08/08/16 08:00 97.6 72 20 119/71 91 08/08/16 00:00 98.2 80 18 115/70 92 08/07/16 21:03 92 Nasal Cannula 2.00 08/07/16 20:00 99.2 89 18 116/71 94 08/07/16 20:00 94 Nasal Cannula 2.00 Humidified 08/07/16 16:22 91 21 08/07/16 12:00 97.4 90 18 109/68 93 CBC/BMP: 08/07/16 0659 08/07/16 0659 Physical Exam General General Appearance: No Acute Distress, Comfortable Eyes Eye Exam: Pupils Equal, Pupils Reactive, Sclera White, Extraocular Movement Intact Throat Throat Exam: Oral Mucosa [place] & Moist, Oral Pharynx Normal Pulmonary Resp Exam: Diminished Breath Sounds Resp Remarks Bilateral wheezing Cardiology CV Exam: Regular, Normal Sinus Rhythm Gastrointestinal/Abdomen GI Exam: Soft, Non-Tender, Bowel Sounds Present Musculoskeletal MS Exam: Normal Tone Integumentary Skin Exam: Clear, Warm, Dry, Intact Extremeties Extremities Exam: No Edema Neurologic Neuro Exam: Alert, Awake, Oriented, Speech Clear, Moving All Extremities, No Focal Deficits Psychiatric Psych Exam: Appropriate Responses VTE Prophylaxis VTE Prophylaxis Meds: Lovenox PUD Prophylasis PUD Prophylaxis: Protonix Assessment/Plan Assessment/Plan ASSESSMENT/PLAN 1. This is a 71-year female who came to the ER diagnosed with shortness of breath, cough and wheezing most likely secondary to pneumonia, COPD exacerbation. on Zithromax 500 mg IV daily and Rocephin 1 gram IV daily. The patient also on DuoNeb nebulization q6h. Further recommendations per patient progress. 2. History of hypertension. Continue home medications. 3. History of hypothyroidism. Continue with levothyroxine 100 mcg p.o. daily. 4. History of insomnia. Continue Zestril 15 mg p.o. daily. 5. DVT prophylaxis, Lovenox 40 mg subcutaneous daily. 6. GI prophylaxis Protonix 40 mg p.o. daily. 7. Low platelet count. We will monitor. 8. Hypokalemia. will replace and checked magnesium level...1.9 ok to dc per pulmonary. ok to dc home today. f/u with pcp/ pulmonary 1 week. Discussed Condition with: Patient Rasta Tinsley MD August 08, 2016 09:02
[2016-08-08] MEDS: CETIRIZINE HCL 10 MG TAB PO SCH (09:28)
[2016-08-08] MEDS: PANTOPRAZOLE SOD 40 MG DELAYED RELEASE TAB PO SCH (09:28)
[2016-08-08] MEDS: amLODIPine BESYLATE 5 MG TAB PO SCH (09:28)
[2016-08-08] MEDS ORDERED: AZIT250T3 PO (10:20)
[2016-08-08] MEDS ORDERED: DEXT10SY2 PO (10:20)
[2016-08-08] MEDS ORDERED: CEFU1TAB20 PO (10:20)
[2016-08-08] MEDS ORDERED: POTASSIUM CHLORIDE 10 MEQ CONTROLLED RELEASE TAB PO ONE (10:45)
[2016-08-08 11:45] VITALS: BP 129/75; PULSE 87; RESP 20; TEMP 97; O2SAT 91
--- NOTE | 2016-08-09 08:42 | MD ---
cc: RASTA KOROMA MD ADMISSION DATE: 08/05/2016 DISCHARGE DATE: 08/08/2016 Okay to discharge the patient home. CONDITION AT THE TIME OF DISCHARGE Satisfactory. ACTIVITY As tolerated. DIET Cardiac diet. ALLERGIES NEOSPORIN, PLASTIC, SULFA. DISCHARGE MEDICATIONS 1. Zithromax 500 mg p.o. daily for 7 days. 2. Ceftin 500 mg p.o. b.i.d. for 7 days. 3. Dextromethorphan guaifenesin 10 mL p.o. q.4 hours. 4. Albuterol inhaler 19 mcg two puff inhalation q. 4-6-hour. 5. Amlodipine 5 mg p.o. daily. 6. Cetirizine 10 mg p.o. daily. 7. Levothyroxine 100 mcg p.o. daily. 8. Temazepam 15 mg p.o. daily. The patient was advised to follow up with PCP and pulmonary in one week. ADMISSION DIAGNOSIS 1. Shortness of breath secondary to pneumonia and COPD exacerbation. The patient is on Zithromax 500 mg IV daily and Rocephin 1 gram IV daily. The patient also got DuoNeb nebulization. The patient's condition improved. 2. History of hypertension. 3. History of hypothyroidism. 4. History of insomnia. 5. Low platelet count, will monitor. 6. Hypokalemia which was resolved. HOSPITAL COURSE This is a 71-year female admitted with shortness of breath diagnosed with COPD exacerbation and pneumonia. The patient remained stable. No acute event happened. The patient's chest x-ray was done and shows right lung mass should not be excluded and needs a CT chest. CT chest was done and shows emphysema, scattered nodular infiltrates bilaterally, most likely infectious in nature, exclude atypical infection such as fungal or tuberculosis, neoplasm is noted and not excluded though felt less likely, follow up is recommended for appropriate medical therapy. Repeat chest x-ray done shows marked hyperinflation without obvious inflammatory changes. The patient had blood cultures done x4 are negative. The patient's acid fast bacilli was negative, microbacterium culture was pending. The patient was to follow up with cultures with Dr. 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 The patient had hypokalemia during hospital stay which was replaced. The patient's PT was 10.5, INR 1.0, APTT 34.1. The patient also had hypoproteinemia 5.8, protein total and hypoalbuminemia 2.6 albumin. The patient's urine did not show any urinary tract infection. The patient remained stable. No acute event happened. The patient was discharged in satisfactory condition. The patient advised to follow up with Dr. Lorne James for further evaluation for atypical or mycobacterial infection. The patient verbalized understanding. Further details in the medical record. Rasta Koroma MD EA/RANJAN /10:25 AM /8:41 AM
== END 2016-08-08 12:03 | disposition home or self-care (01) | DRG 190 ==
LOC: PHED 19:11 → INTOOBSV 22:02 → PHEDA 22:02 → PH3B 23:17 → OBSVTOIN 08-05 08:23
PROVIDERS: ADMIT Family Medicine; ATTEND Family Medicine
DX: J44.0 Chronic obstructive pulmonary disease with (acute) lower respiratory infection (principal); J18.9 Pneumonia, unspecified organism; E77.8 Other disorders of glycoprotein metabolism; E88.09 Other disorders of plasma-protein metabolism, not elsewhere classified; K21.9 Gastro-esophageal reflux disease without esophagitis; J44.1 Chronic obstructive pulmonary disease with (acute) exacerbation; I10 Essential (primary) hypertension; E03.9 Hypothyroidism, unspecified; F17.210 Nicotine dependence, cigarettes, uncomplicated; G47.00 Insomnia, unspecified; E87.6 Hypokalemia; F41.9 Anxiety disorder, unspecified
CPT/HCPCS: 71020; 71250; 80048; 80053; 81001; 83605; 83735; 84484; 85025; 85610; 85730; 87015; 87040; 87116; 87206; 93005; 94640; 94664; 96372; 96374; 96375; J0456; J0696; J1650; J7050

== ENCOUNTER 2017-04-16 15:37 | Emergency (ER) | payer MEDICARE ==
[~2017-04-16] VITALS: Ht 160 cm; Wt 39.0 kg
[~2017-04-16 15:37] MED LIST changes: -ALBU8I INH; +AMLO5TAB2 PO; -AMLO5TAB22 PO; +AZIT250T3 PO; +CEFU1TAB20 PO; +CETI10 PO; +DEXT10SY2 PO; -LEVO.125 PO; +LEVO100T5 PO; +REST15CA PO; -SUCR1 PO; -TEMA15 PO; +VENTAER INH
[2017-04-16 15:42] VITALS: BP 180/81; PULSE 77; RESP 16; TEMP 98.1; O2SAT 96
[2017-04-16] MEDS ORDERED: OMEP2.5S (16:08)
[2017-04-16] MEDS ORDERED: SODIUM CHLORIDE 0.9% FLUSH 10 ML FLUSH IV FLUSH PRN (16:15)
--- NOTE | 2017-04-16 16:16 | PD ---
HPI Chief Complaint: Abdominal Pain Time Seen by Provider: 15:48 Travel History International Travel<30 days: No Contact w/Intl Traveler<30days: No Traveled to known affect area: No History of Present Illness HPI The patient was seen and examined in the presence of the nurse. She complains of abdominal pain. Location is right lower quadrant. She has no appendix. She 's had and hernia repair in the right lower quadrant. Has nausea but no vomiting. Duration of pain is one week. Severity is moderate. No alleviating factors. No exacerbating factors. Denies fever. PFSH Past Medical History Hx Anticoagulant Therapy: No Arthritis: Yes Asthma: No Autoimmune Disease: No Anxiety: No Depression: No Heart Rhythm Problems: No Cancer: No Cardiovascular Problems: Yes (HTN) Cerebral Palsy: No High Cholesterol: No Chest Pain: No Congestive Heart Failure: No COPD: Yes Cerebrovascular Accident: No Diabetes: No Diminished Hearing: No Endocrine: Yes Gastrointestinal Disorders: Yes GERD: Yes Genitourinary: Yes (URGENCY/BLADDER SLING) Headaches: Yes Hiatal Hernia: No Hypertension: Yes (MED. CONTROLLED) Immune Disorder: No Implanted Vascular Access Dvce: Yes Kidney Stones: No Musculoskeletal: Yes Neurologic: No Psychiatric: No Reproductive: No Respiratory: Yes (COPD) Immunizations Current: Yes Migraines: No Renal Failure: No Seizures: No Sleep Apnea: No Thyroid Disease: Yes (HYPO) Ulcer: No Tetanus Vaccination: < 5 Years Influenza Vaccination: No ?: Not Menopausal: Yes Past Surgical History Abdominal Surgery: Yes (APPENDECTOMY - INCIDENTAL WITH CS, HERNIA REPAIR) AICD: No Appendectomy: Yes Arteriovenous Shunt: No Cardiac Surgery: No Section: Yes (X3) Endocrine Surgery: No Eye Surgery: No Genitourinary Surgery: No Gynecologic Surgery: Yes (CESEREAN SECTION X 3) Insulin Pump: No Joint Replacement: Yes (LEFT KNEE, RIGHT HIP) Neurologic Surgery: No Oral Surgery: Yes (TONSILLECTOMY) Pacemaker: No Thoracic Surgery: No Tonsillectomy: Yes Other Surgery: Yes (CARPEL TUNNEL SURG. TO RIGHT HAND., endoscopy x 2 with vessel cautery) Social History Alcohol Use: Yes (RARE) Tobacco Use: Yes (1/2 ppd) Substance Use: No Allergies-Medications (Allergen,Severity, Reaction): Coded Allergies: Sulfa (Sulfonamide Antibiotics) (Unverified Allergy, Severe, RASH, 2/4/18) bacitracin (Unverified Allergy, Mild, Rash, 04/16/17) gramicidin D (Unverified Allergy, Mild, Rash, 04/16/17) neomycin (Unverified Allergy, Mild, Rash, 04/16/17) polymyxin B (Unverified Allergy, Mild, Rash, 04/16/17) Uncoded Allergies: PLASTIC (Allergy, Mild, 12/04/15) Reported Meds & Prescriptions Reported Meds & Active Scripts Active Reported Prilosec (Omeprazole Magnesium) 2.5 Mg Pow Restoril (Temazepam) 15 Mg Cap 15 Mg PO HS PRN Levothyroxine (Levothyroxine Sodium) 100 Mcg Tab 100 Mcg PO DAILY Amlodipine (Amlodipine Besylate) 5 Mg Tab 5 Mg PO DAILY Ventolin Hfa 18 GM Inh (Albuterol Sulfate) 90 Mcg/Act Aer 2 Puff INH Q4-6H PRN Review of Systems General / Constitutional: Positive: Weight Loss, No: Fever Eyes: No: Visual changes HENT: No: Headaches Cardiovascular: No: Chest Pain or Discomfort Respiratory: No: Shortness of Breath Gastrointestinal: Positive: Nausea, Abdominal Pain Genitourinary: No: Dysuria Musculoskeletal: No: Pain Skin: No Rash Neurologic: No: Weakness Psychiatric: No: Depression Endocrine: No: Polydipsia Hematologic/Lymphatic: No: Easy Bruising Physical Exam Narrative GENERAL: Thin well-developed patient in with abdominal pain . SKIN: Focused skin assessment reveals no rash and nodules. Skin is Warm and dry. HEAD: Atraumatic. Normocephalic. EYES: Pupils equal and round. No scleral icterus. No injection or drainage. ENT: No nasal bleeding or discharge. Mucous membranes pink and moist. NECK: Trachea midline. No JVD. CARDIOVASCULAR: Regular rate and rhythm. No murmur appreciated. RESPIRATORY: No accessory muscle use. Clear to auscultation. Breath sounds equal bilaterally. GASTROINTESTINAL: Abdomen soft, right lower quadrant is tender but no rebound or guarding , nondistended. Hepatic and splenic margins not palpable. MUSCULOSKELETAL: No obvious deformities. No clubbing. No cyanosis. No edema. NEUROLOGICAL: Awake and alert. No obvious cranial nerve deficits. Motor grossly within normal limits. Normal speech. PSYCHIATRIC: Appropriate mood and affect; insight and judgment normal. Data Data Last Documented VS Vital Signs Date Time Temp Pulse Resp B/P (MAP) Pulse Ox O2 Delivery O2 Flow Rate FiO2 04/16/17 18:32 74 16 161/78 (105) 98 Room Air 04/16/17 15:42 98.1 Orders Orders Complete Blood Count With Diff (04/16/17 16:10) Comprehensive Metabolic Panel (04/16/17 16:10) Lipase (04/16/17 16:10) Prothrombin Time / Inr (Pt) (04/16/17 16:10) Act Partial Throm Time (Ptt) (04/16/17 16:10) Urinalysis - C+S If Indicated (04/16/17 16:10) Iv Access Insert/Monitor (04/16/17 16:10) Ecg Monitoring (04/16/17 16:10) NPO (04/16/17 16:10) Sodium Chloride 0.9% Flush (Ns Flush) (04/16/17 16:15) Electrocardiogram (04/16/17 16:10) Ckmb (Isoenzyme) Profile (04/16/17 16:10) Troponin I (04/16/17 16:10) Ct Abd/Pel W Iv Contrast(Rout) (04/16/17 ) Urine Culture (04/16/17 16:28) Iohexol 350 Inj (Omnipaque 350 Inj) (04/16/17 17:39) Labs Laboratory Tests Test 04/16/17 16:28 04/16/17 16:36 Urine Collection Type VOIDED Urine Color YELLOW Urine Turbidity CLEAR Urine pH 7.5 Urine Specific [place] 1.010 Urine Protein NEG mg/dL Urine Glucose (UA) NEG mg/dL Urine Ketones NEG mg/dL Urine Occult Blood NEG Urine Nitrite NEG Urine Bilirubin NEG Urine Leukocyte Esterase NEG Urine WBC 3-5 /hpf Urine WBC Clumps RARE Urine Squamous Epithelial Cells 0-3 /hpf Urine Bacteria RARE /hpf Microscopic Urinalysis Comment CULTURE INDICATED White Blood Count 6.0 TH/MM3 Red Blood Count 4.36 MIL/MM3 Hemoglobin 13.7 GM/DL Hematocrit 41.0 % Mean Corpuscular Volume 94.0 FL Mean Corpuscular Hemoglobin 31.4 PG Mean Corpuscular Hemoglobin Concent 33.4 % Red Cell Distribution Width 11.2 % Platelet Count 189 TH/MM3 Mean Platelet Volume 8.4 FL Neutrophils (%) (Auto) 72.4 % Lymphocytes (%) (Auto) 19.1 % Monocytes (%) (Auto) 6.8 % Eosinophils (%) (Auto) 0.9 % Basophils (%) (Auto) 0.8 % Neutrophils # (Auto) 4.3 TH/MM3 Lymphocytes # (Auto) 1.2 TH/MM3 Monocytes # (Auto) 0.4 TH/MM3 Eosinophils # (Auto) 0.1 TH/MM3 Basophils # (Auto) 0.0 TH/MM3 CBC Comment DIFF FINAL Differential Comment Prothrombin Time 10.1 SEC Prothromb Time International Ratio 1.0 RATIO Activated Partial Thromboplast Time 26.1 SEC Blood Urea Nitrogen 11 MG/DL Creatinine 0.68 MG/DL Random Glucose 80 MG/DL Total Protein 7.2 GM/DL Albumin 4.0 GM/DL Calcium Level 9.4 MG/DL Alkaline Phosphatase 95 U/L Aspartate Amino Transf (AST/SGOT) 17 U/L Alanine Aminotransferase (ALT/SGPT) 17 U/L Total Bilirubin 0.4 MG/DL Sodium Level 138 MEQ/L Potassium Level 3.2 MEQ/L Chloride Level 104 MEQ/L Carbon Dioxide Level 27.9 MEQ/L Anion Gap 6 MEQ/L Estimat Glomerular Filtration Rate 86 ML/MIN Total Creatine Kinase 63 U/L Troponin I LESS THAN 0.02 NG/ML Lipase 139 U/L MDM Medical Decision Making Medical Screen Exam Complete: Yes Emergency Medical Condition: Yes Medical Record Reviewed: Yes Differential Diagnosis Colitis, ileus, obstruction Narrative Course I have reviewed the patient's electronic medical record. 1614: Patient having right lower quadrant pain for a week with nausea. Ordered abdominal pain workup. 1850: I reassessed the patient. Still has soft benign abdomen. CBC and metabolic studies are essentially normal CT shows cholelithiasis and nonobstructing renal stone no finding to explain her pain Stable for outpatient follow-up with primary care Diagnosis Primary Impression: Abdominal pain Qualified Codes: R10.31 - Right lower quadrant pain Additional Instructions: The patient was advised to follow up with their physician and return if they worsen. Med/Other Pt SpecificInfo: Other Disposition: 01 DISCHARGE HOME Condition: Stable Praveen Tabares MD Apr 16, 2017 16:16
[2017-04-16 16:57] LABS: BILIRUBIN, URINE NEG (NEG); BLOOD, URINE NEG (NEG); GLUCOSE,URINE NEG (NEG); KETONE, URINE NEG (NEG); NITRITE,URINE NEG (NEG); PH, URINE 7.5 (5.0-8.5); URINE LEUKOCYTE ESTERASE NEG (NEG)
[2017-04-16 16:58] LABS: AUTOMATED NEUTROPHIL # 4.3 TH/MM3 (1.8-7.7); BASOPHIL % 0.8 % (0.0-2.0); EOSINOPHIL # 0.1 TH/MM3 (0-0.4); EOSINOPHIL % 0.9 % (0.0-4.0); HEMOGLOBIN 13.7 GM/DL (11.6-15.3); LYMPH % 19.1 % (9.0-44.0); LYMPHOCYTE # 1.2 TH/MM3 (1.0-4.8); MEAN CORPUSCULAR HEMOGLOBIN 31.4 PG (27.0-34.0); MEAN CORPUSCULAR HGB CONC 33.4 % (32.0-36.0); MEAN PLATELET VOLUME 8.4 FL (7.0-11.0); MONO % 6.8 % (0.0-8.0); MONOCYTE # 0.4 TH/MM3 (0-0.9); NEUT % 72.4 % (16.0-70.0); PLATELET COUNT 189 TH/MM3 (150-450); RED BLOOD COUNT 4.36 MIL/MM3 (4.00-5.30); RED CELL DISTRIBUTION WIDTH 11.2 % (11.6-17.2)
[2017-04-16 17:15] LABS: CHLORIDE 104 MEQ/L (98-107); SODIUM (NA) 138 MEQ/L (136-145)
[2017-04-16 17:20] LABS: BICARBONATE 27.9 MEQ/L (21.0-32.0); BLOOD UREA NITROGEN 11 MG/DL (7-18); CALCIUM 9.4 MG/DL (8.5-10.1); GLUCOSE,RANDOM 80 MG/DL (74-106)
[2017-04-16 17:21] LABS: PROTHROMBIN TIME - PATIENT 10.1 SEC (9.8-11.6)
[2017-04-16 17:23] LABS: ALT (GPT) 17 U/L (10-53); AST (GOT) 17 U/L (15-37); CREATININE 0.68 MG/DL (0.50-1.00); GLOMERULAR FILTRATION RATE 86 ML/MIN (>89)
[2017-04-16 17:24] LABS: URINE COLOR YELLOW (YELLW/STRAW); WHITE BLOOD CELL CLUMPS RARE
[2017-04-16 17:25] LABS: TOTAL BILIRUBIN ADULT 0.4 MG/DL (0.2-1.0); TOTAL PROTEIN 7.2 GM/DL (6.4-8.2)
[2017-04-16 17:25] LABS: BACTERIA, URINE RARE /hpf; SQUAMOUS EPITHELIAL CELL URINE 0-3 /hpf (0-5)
[2017-04-16 17:26] LABS: ALKALINE PHOSPHATASE 95 U/L (45-117)
[2017-04-16 17:28] LABS: TROPONIN I LESS THAN 0.02 NG/ML (0.02-0.05)
[2017-04-16] MEDS ORDERED: IOHEXOL 350 MG/ML 10 ML VIAL (for RAD DIAG) IVCONTRAST ONE (17:39)
--- NOTE | 2017-04-16 18:04 | RADRPT ---
EXAM DATE/TIME: 04/16/2017 17:35 [facility] COMPARISON: No previous studies available for comparison. INDICATIONS : Right lower quadrant pain with nausea. IV CONTRAST: 75 cc Omnipaque 350 (iohexol) IV ORAL CONTRAST: No oral contrast ingested. RADIATION DOSE: 4.45 CTDIvol (mGy) MEDICAL HISTORY : Hypertension. Chronic obstructive pulmonary disease. Gastroesophageal reflux disease. SURGICAL HISTORY : Appendectomy. section.Hernia repair. Bladder sling. Right hip surgery. ENCOUNTER: Initial ACUITY: 2 days PAIN SCALE: 6/10 LOCATION: Right lower quadrant TECHNIQUE: Volumetric scanning of the abdomen and pelvis was performed. Using automated exposure control and ad justment of the mA and/or kV according to patient size, radiation dose was kept as low as reasonably achievable to obtain optimal diagnostic quality images. DICOM format image data is available electro nically for review and comparison. FINDINGS: CT Abdomen: The liver, spleen, pancreas, adrenals are unremarkable. There are 7 separate stones in th e left kidney the largest measures almost 6-7 mm in size in left lower pole with simple cysts in the kidneys the largest measures 1.6 cm on the right. There is no evidence for any appreciable pathologic al adenopathy, free fluid, or bowel obstruction. Chronic vascular calcifications are present involvi ng the aorta, iliac arteries without any significant stenosis or aneurysmal dilatations for technique . The gallbladder demonstrates multiple stones without gallbladder wall thickening, or pericholecysti c fluid. Chronic vascular calcifications are present involving the aorta, iliac arteries without any significant stenosis or aneurysmal dilatations for technique. CT pelvis: There is no evidence for mass, abscess formation, or any significant adenopathy within the pelvis. Moderate osteoarthritis is seen in the left hip joint. Lumbar scoliosis is seen convexity to wards the left and a total hip arthroplasty is seen with acetabular component somewhat high riding. T here are small calcified fibroids within the uterus. CONCLUSION: 1. Cholelithiasis. 2. Nonobstructing left renal stones. Grisel Jain MD on April 16, 2017 at 17:55 Board Certified Radiologist. This report was verified electronically.
[2017-04-16 18:32] VITALS: BP 161/78; PULSE 74; RESP 16; O2SAT 98
--- NOTE | 2017-04-17 22:15 | EKG ---
Date Performed: 04/16/2017 Time Performed: 16:17:36 PTAGE: 72 years EKG: Sinus rhythm LEFT ANTERIOR FASCICULAR BLOCK MINIMAL ST DEPRESSION ABNORMAL ECG PREVIOUS TRACING : 08/03/2016 20.21 DOCTOR: Annamaria Quispe Interpretating Date/Time 04/17/2017 22:05:28
== END 2017-04-16 19:14 | disposition home or self-care (01) ==
LOC: PHED 15:37
DX: K80.20 Calculus of gallbladder without cholecystitis without obstruction (principal); N20.0 Calculus of kidney; I44.4 Left anterior fascicular block; R94.31 Abnormal electrocardiogram [ECG] [EKG]; I10 Essential (primary) hypertension; J44.9 Chronic obstructive pulmonary disease, unspecified; K21.9 Gastro-esophageal reflux disease without esophagitis; E03.9 Hypothyroidism, unspecified; F17.200 Nicotine dependence, unspecified, uncomplicated
CPT/HCPCS: 74177; 80053; 81001; 82550; 83690; 84484; 85025; 85610; 85730; 87086; 93005; 99285; Q9967